=== PATIENT | male | born 1990 | race Caucasian/White ===

== ENCOUNTER 2019-10-14 03:29 | Emergency (ER) | payer OTHER ==
[~2019-10-14] VITALS: Ht 167.6 cm; Wt 67.6 kg
[2019-10-14] MEDS ORDERED: ONDANSETRON ODT 4 MG TAB.RAPDIS PO ONE (03:45)
[2019-10-14] MEDS ORDERED: DEXAMETHASONE 4 MG TABLET PO ONE (03:45)
--- NOTE | 2019-10-14 03:45 | PHYS DOC ---
Past History Past Medical History: A-Fib, CAD Additional Past Surgical Histo: Cardioversion Smoking: Non-smoker Alcohol Use: None Drug Use: None Adult General Chief Complaint Chief Complaint: Cough, Vomiting HPI HPI 29-year-old male presents with report of cough with generalized malaise and subjective fever/chills. Patient reports started 24 hours ago. Reports awoke this morning with nausea and vomiting. Denies any diarrhea. 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 Denies trauma. Review of Systems Review of Systems Constitutional: Reports subjective fever and chills Eyes: Denies redness or eye pain HENT: Reports rhinorrhea; denies sore throat Respiratory: Reports cough; denies shortness of breath Cardiovascular: Denies chest pain or palpitations GI: Denies abdominal pain; reports nausea and vomiting : Denies dysuria or hematuria Musculoskeletal: Denies back pain or joint pain Integument: Denies rash or skin lesions Neurologic: Denies headache, focal weakness or sensory changes Complete systems were reviewed and found to be within normal limits, except as documented in this note. Physical Exam Physical Exam Constitutional: Well developed, well nourished, non-toxic appearance HENT: Normocephalic, atraumatic, oropharynx tacky Eyes: Conjunctiva normal, no discharge Neck: Normal range of motion, no tenderness, supple, no meningeal signs Cardiovascular: Heart rate normal, regular rhythm Lungs & Thorax: Bilateral breath sounds clear to auscultation, no wheezing Abdomen: Soft, no tenderness, no guarding/rebound tenderness/distention Skin: Warm, dry, no erythema, no rash Back: No tenderness, no CVA tenderness Extremities: No tenderness, ROM intact, no edema Neurologic: Alert and oriented X 3, no focal deficits noted Psychologic: Affect normal, judgement normal EKG EKG [] Radiology/Procedures Radiology/Procedures PROCEDURE: CHEST PA & LATERAL EXAM: PA and Lateral Views of the Chest DATE: 10/14/2019 3:41 AM INDICATION: Cough COMPARISON: No Prior FINDINGS: The heart is not enlarged. Mediastinal and hilar contours are normal. No focal parenchymal airspace opacity. No pleural effusion or pneumothorax. IMPRESSION: 1. No radiographic evidence for acute cardiopulmonary process. Electronically signed by: Abel Latif MD (10/14/2019 4:08 AM) [id number] Course & Med Decision Making Course & Med Decision Making Pertinent Labs and Imaging studies reviewed. (See chart for details) Patient presents with history of present illness and physical exam consistent for viral syndrome. Symptomatic treatment provided. IV fluid hydration given. Labs obtained and posted to chart. Influenza negative. Chest x-ray without acute process. Patient stable for discharge with outpatient follow-up with PCP. Discussed findings and plan with patient, who acknowledges understanding and agreement. Dragon Disclaimer Dragon Disclaimer This electronic medical record was generated, in whole or in part, using a voice recognition dictation system. Departure Departure: Impression: Primary Impression: Viral syndrome Disposition: HOME, SELF-CARE Condition: STABLE Referrals: PCP,NO (PCP) Patient Instructions: Nausea and Vomiting, [id number], Viral Syndrome Scripts Benzonatate (TESSALON PERLE) 100 Mg Capsule 1 CAP PO TID PRN for COUGH, #21 CAP Prov: ROBYN IQBAL DO 10/14/19 Prednisone (PREDNISONE) 20 Mg Tablet 2 TAB PO DAILY for Viral syndrome, #8 TAB Start this prescription tomorrow, Tuesday10/15/2019 Prov: ROBYN IQBAL DO 10/14/19 Famotidine (PEPCID) 20 Mg Tablet 1 TAB PO BID for Gastritis, #20 TAB Prov: ROBYN IQBAL DO 10/14/19 Ondansetron (ONDANSETRON ODT) 4 Mg Tab.rapdis 1 TAB PO PRN Q6-8HRS PRN for NAUSEA, #16 TAB Prov: ROBYN IQBAL DO 10/14/19 ROBYN IQBAL DO Oct 14, 2019 03:45
[2019-10-14] MEDS ORDERED: PRED20TA PO (03:52)
[2019-10-14] MEDS ORDERED: BENZ100C PO (03:52)
[2019-10-14] MEDS ORDERED: ONDA4TAB12 PO (03:52)
[2019-10-14] MEDS ORDERED: FAMO-63 PO (03:52)
[2019-10-14] MEDS ORDERED: DEXAMETHASONE SOD PHOS 4 MG/ML VIAL IVP ONE (04:00)
[2019-10-14] MEDS ORDERED: FAMOTIDINE 20 MG/2 ML VIAL IVP ONE (04:00)
[2019-10-14] MEDS ORDERED: IV NORMAL SALINE 1,000ML 1,000 ML IV ONE (04:00)
[2019-10-14] MEDS ORDERED: ONDANSETRON PF 4 MG/2 ML VIAL. IVP ONE ×2 (04:00→05:00)
--- NOTE | 2019-10-14 04:11 | RAD ---
EXAM: PA and Lateral Views of the Chest DATE: 10/14/2019 3:41 AM INDICATION: Cough COMPARISON: No Prior FINDINGS: The heart is not enlarged. Mediastinal and hilar contours are normal. No focal parenchymal airspace opacity. No pleural effusion or pneumothorax. IMPRESSION: 1. No radiographic evidence for acute cardiopulmonary process. Electronically signed by: Abel Latif MD (10/14/2019 4:08 AM) [facility]
[2019-10-14 04:28] LABS: BASO % 1 % (0-3); EOS # 0.1 x10^3/uL (0.0-0.7); EOS % 1 % (0-3); HEMATOCRIT 46.1 % (39.0-53.0); HEMOGLOBIN 15.8 g/dL (13.0-17.5); LYMPH # 0.4 x10^3/uL (1.0-4.8); LYMPH % 5 % (24-48); MEAN CORPUSCULAR HEMOGLOBIN 31 pg (25-35); MEAN CORPUSCULAR HGB CONC 34 g/dL (31-37); MEAN CORPUSCULAR VOLUME 89 fL (79-100); MONO % 13 % (0-9); NEUT # 6.3 x10^3uL (1.8-7.7); NEUT % 80 % (31-73); PLATELET COUNT 236 x10^3/uL (140-400); RED BLOOD COUNT 5.18 x10^6/uL (4.30-5.70); RED CELL DISTRIBUTION WIDTH 12.8 % (11.5-14.5); WHITE BLOOD COUNT 7.9 x10^3/uL (4.0-11.0)
[2019-10-14 04:31] LABS: CALCIUM 8.9 mg/dL (8.5-10.1); CREATININE 0.9 mg/dL (0.7-1.3); GFR 100.5; POTASSIUM 3.5 mmol/L (3.5-5.1)
[2019-10-14 04:37] LABS: ALBUMIN 4.1 g/dL (3.4-5.0); ALBUMIN/GLOBULIN RATIO 1.4 (1.0-1.7); TOTAL BILIRUBIN 0.8 mg/dL (0.2-1.0); TOTAL PROTEIN 7.1 g/dL (6.4-8.2)
[2019-10-14 04:39] LABS: INFLUENZA A PATIENT NEGATIVE (NEGATIVE); INFLUENZA B PATIENT NEGATIVE (NEGATIVE)
[2019-10-14 04:40] VITALS: BP 126/55
== END 2019-10-14 05:00 | disposition home or self-care (01) ==
LOC: ER 03:29
DX: B34.9 Viral infection, unspecified (principal); R11.2 Nausea with vomiting, unspecified; R50.9 Fever, unspecified; R05 Cough; R53.81 Other malaise; I48.91 Unspecified atrial fibrillation; I25.10 Atherosclerotic heart disease of native coronary artery without angina pectoris; Z98.890 Other specified postprocedural states
CPT/HCPCS: 36415; 71046; 80053; 83690; 83735; 85025; 87804; 96361; 96374; 96375; 96376; 99285; J1100; J2405; J3490; J7030

== ENCOUNTER 2020-03-08 23:45 | Emergency (ER) | payer OTHER ==
[~2020-03-08] VITALS: Ht 167.6 cm; Wt 66.0 kg
[~2020-03-08 23:45] MED LIST: BENZ100C PO; FAMO-63 PO; ONDA4TAB12 PO; PRED20TA PO
--- NOTE | 2020-03-09 00:05 | PHYS DOC ---
Past History Past Medical History: A-Fib, Asthma, CAD, ND Past Surgical History: No Surgical History Additional Past Surgical Histo: Cardioversion Smoking: Non-smoker Alcohol Use: None Drug Use: None General Adult EDM: Chief Complaint: ABDOMINAL PAIN HPI: HPI: Patient is a 30-year-old male who presents with complaint of lower abdominal pain that started earlier this afternoon at about 1 or 130. Patient states that pain got quite a bit worse at around 730 to 8:00 when he tried to lay down to go to sleep. He states the pain was worsened with lying down flat. He does indicate that when he is walking that he hunches over slightly. Patient rates pain at about a 7 or an 8 out of 10. He denies any nausea or vomiting but does indicate that he has had some diarrhea over the past couple of days. He also states that he was feeling feverish at work but he states that that had cleared up. [] Review of Systems: Review of Systems: Constitutional: Denies fever or chills Respiratory: Denies cough or shortness of breath Cardiovascular: Denies chest pain or edema GI: Complains of lower abdominal pain and diarrhea. Denies nausea or vomiting : Denies dysuria Musculoskeletal: Denies back pain or joint pain Integument: Denies rash Neurologic: Denies headache, focal weakness or sensory changes Heart Score: Risk Factors: Risk Factors: DM, Current or recent (<one month) smoker, HTN, HLP, family history of CAD, obesity. Risk Scores: Score 0 - 3: 2.5% MACE over next 6 weeks - Discharge Home Score 4 - 6: 20.3% MACE over next 6 weeks - Admit for Clinical Observation Score 7 - 10: 72.7% MACE over next 6 weeks - Early Invasive Strategies Allergies: Allergies: Allergies Coded Allergies Type Severity Reaction Last Updated Verified cefuroxime Allergy Intermediate Hives 10/14/19 Yes Physical Exam: PE: Constitutional: Well developed, well nourished, no acute distress, non-toxic appearance. [] HENT: Normocephalic, atraumatic, bilateral external ears normal, oropharynx moist, no oral exudates, nose normal. [] Eyes: PERRLA, EOMI, conjunctiva normal, no discharge. [] Neck: Normal range of motion, no tenderness, supple. [] Cardiovascular: Regular rate and rhythm [] Lungs & Thorax: Bilateral breath sounds clear to auscultation [] Abdomen: Bowel sounds normal, soft, with mild lower abdominal tenderness. [] Skin: Warm, dry, no erythema, no rash. [] Extremities: No tenderness, no cyanosis, no clubbing, ROM intact, no edema. [] Neurologic: Alert and oriented X 3, no focal deficits noted. [] Current Patient Data: Vital Signs: Vital Signs Date Time Temp Pulse Resp B/P (MAP) Pulse Ox O2 Delivery O2 Flow Rate FiO2 03/08/20 23:56 97.8 79 18 125/99 (108) 99 Room Air EKG: EKG: [] Radiology/Procedures: Radiology/Procedures: [] Impressions: PROCEDURE: CT ABD PELV W/ IV CONTRST ONLY Examination: CT of the abdomen pelvis with IV contrast HISTORY: History of right lower quadrant abdominal pain TECHNIQUE: Axial CT images of the abdomen pelvis were performed with IV contrast. Coronal and sagittal reformats are performed Exposure: One or more of the following individualized dose reduction techniques were utilized for this examination: 1. Automated exposure control 2. Adjustment of the mA and/or kV according to patient size 3. Use of iterative reconstruction technique FINDINGS: The bibasilar lungs are clear. No evidence of free air identified in the abdomen. The liver, spleen, adrenals grossly appears unremarkable. Gallbladder is mildly distended. The stomach is mildly distended. The visualized pancreas grossly appears unremarkable. The small bowel is nondilated. The appendix appears unremarkable. Feces and gas noted in the colon. There is questionable mild thickened appearance of the wall of the distal ileum with the mild surrounding fat stranding. The bilateral kidneys enhance symmetrically. Urinary bladder is mildly distended. No evidence of lytic bony destructive lesion. IMPRESSION: 1. Mild thickened appearance of the wall of the distal ileum with minimal questionable surrounding fat stranding could be mild enteritis. Electronically signed by: Michael Watts MD (03/09/2020 1:53 AM) [id number] Course & Med Decision Making: Course & Med Decision Making Pertinent Labs and Imaging studies reviewed. (See chart for details) [] Dragon Disclaimer: Dragon Disclaimer: This electronic medical record was generated, in whole or in part, using a voice recognition dictation system. Departure Departure: Impression: Primary Impression: Enteritis Disposition: 01 HOME/RESIDENCE PRIOR TO ADM Condition: STABLE Referrals: PCP,NO (PCP) Patient Instructions: Viral Gastroenteritis Scripts Tramadol Hcl (TRAMADOL HCL) 50 Mg Tablet 50 MG PO PRN Q6HRS PRN for PAIN, #12 TAB Prov: STEPHANIE NEGRON Jr. DO 03/09/20 Ondansetron (ONDANSETRON ODT) 4 Mg Tab.rapdis 1 TAB PO PRN Q6-8HRS PRN for NAUSEA, #12 TAB Prov: STEPHANIE NEGRON Jr. DO 03/09/20 Diphenoxylate Hcl/Atropine (LOMOTIL TABLET) 1 Each Tablet 1 TAB PO TID PRN for DIARRHEA, #15 TAB Prov: STEPHANIE NEGRON Jr. DO 03/09/20 Justification of Admission: Justification of Admission: Justification of Admission Dx: Comment: (Not applicable) STEPHANIE NEGRON Jr. DO Mar 09, 2020 00:05
[2020-03-09 00:29] LABS: BASO # 0.1 x10^3/uL (0.0-0.2); BASO % 1 % (0-3); EOS # 0.6 x10^3/uL (0.0-0.7); EOS % 8 % (0-3); HEMATOCRIT 43.1 % (39.0-53.0); HEMOGLOBIN 14.9 g/dL (13.0-17.5); LYMPH # 1.4 x10^3/uL (1.0-4.8); LYMPH % 20 % (24-48); MEAN CORPUSCULAR HEMOGLOBIN 31 pg (25-35); MEAN CORPUSCULAR HGB CONC 35 g/dL (31-37); MEAN CORPUSCULAR VOLUME 90 fL (79-100); MONO # 0.9 x10^3/uL (0.0-1.1); MONO % 13 % (0-9); NEUT # 4.3 x10^3uL (1.8-7.7); NEUT % 59 % (31-73); PLATELET COUNT 252 x10^3/uL (140-400); RED BLOOD COUNT 4.79 x10^6/uL (4.30-5.70); RED CELL DISTRIBUTION WIDTH 12.6 % (11.5-14.5); WHITE BLOOD COUNT 7.2 x10^3/uL (4.0-11.0)
[2020-03-09] MEDS ORDERED: ONDANSETRON PF 4 MG/2 ML VIAL. IVP ONE (00:30)
[2020-03-09] MEDS ORDERED: IV NORMAL SALINE 1,000ML 1,000 ML IV SCH (00:30)
[2020-03-09] MEDS ORDERED: KETOROLAC 30 MG/ML VIAL. IVP ONE (00:30)
[2020-03-09 00:38] LABS: CALCIUM 8.6 mg/dL (8.5-10.1); CREATININE 0.9 mg/dL (0.7-1.3); GFR 99.8; POTASSIUM 3.5 mmol/L (3.5-5.1)
[2020-03-09 00:44] LABS: ALBUMIN 3.6 g/dL (3.4-5.0); ALBUMIN/GLOBULIN RATIO 1.1 (1.0-1.7); TOTAL BILIRUBIN 0.5 mg/dL (0.2-1.0); TOTAL PROTEIN 6.8 g/dL (6.4-8.2)
[2020-03-09 00:47] LABS: BACTERIA,URINE FEW /HPF (0-FEW); BILIRUBIN,URINE NEG (NEG); CLARITY,URINE CLEAR; COLOR,URINE YELLOW; GLUCOSE,URINE NEG (NEG); NITRITE,URINE NEG (NEG); RBC,URINE OCC /HPF (0-2); UROBILINOGEN,URINE 0.2 mg/dL (0.2 mg/dL); WBC,URINE OCC /HPF (0-4)
[2020-03-09] MEDS ORDERED: CONTRAST GIVEN MC PRN (01:30)
--- NOTE | 2020-03-09 01:56 | RAD ---
Examination: CT of the abdomen pelvis with IV contrast HISTORY: History of right lower quadrant abdominal pain TECHNIQUE: Axial CT images of the abdomen pelvis were performed with IV contrast. Coronal and sagittal reformats are performed Exposure: One or more of the following individualized dose reduction techniques were utilized for this examination: 1. Automated exposure control 2. Adjustment of the mA and/or kV according to patient size 3. Use of iterative reconstruction technique FINDINGS: The bibasilar lungs are clear. No evidence of free air identified in the abdomen. The liver, spleen, adrenals grossly appears unremarkable. Gallbladder is mildly distended. The stomach is mildly distended. The visualized pancreas grossly appears unremarkable. The small bowel is nondilated. The appendix appears unremarkable. Feces and gas noted in the colon. There is questionable mild thickened appearance of the wall of the distal ileum with the mild surrounding fat stranding. The bilateral kidneys enhance symmetrically. Urinary bladder is mildly distended. No evidence of lytic bony destructive lesion. IMPRESSION: 1. Mild thickened appearance of the wall of the distal ileum with minimal questionable surrounding fat stranding could be mild enteritis. Electronically signed by: Michael Watts MD (03/09/2020 1:53 AM) [id number]
[2020-03-09] MEDS ORDERED: IOHEXOL 300 MG/ML 75 ML VIAL. IV ONE (02:00)
[2020-03-09] MEDS ORDERED: DIPH1TAB PO (02:04)
[2020-03-09] MEDS ORDERED: TRAM50TA PO (02:04)
[2020-03-09] MEDS ORDERED: ONDA4TAB12 PO (02:04)
[2020-03-09 02:10] VITALS: BP 118/73
== END 2020-03-09 02:10 | disposition home or self-care (01) ==
LOC: ER 23:45
DX: K52.9 Noninfective gastroenteritis and colitis, unspecified (principal); I48.91 Unspecified atrial fibrillation; J45.909 Unspecified asthma, uncomplicated; I25.10 Atherosclerotic heart disease of native coronary artery without angina pectoris; I25.2 Old myocardial infarction; Z88.1 Allergy status to other antibiotic agents
CPT/HCPCS: 36415; 74177; 80053; 81001; 83690; 85025; 96361; 96374; 96375; 99285; J1885; J2405; J7030; Q9967

== ENCOUNTER 2020-11-12 18:48 | Emergency (ER) | payer OTHER ==
[~2020-11-12] VITALS: Ht 170.2 cm; Wt 67.7 kg
[~2020-11-12 18:48] MED LIST changes: +DIPH1TAB PO; +TRAM50TA PO
[2020-11-12] MEDS ORDERED: ASPIRIN CHEWABLE 81 MG TABLET. PO ONE (19:15)
--- NOTE | 2020-11-12 19:41 | RAD ---
INDICATION: Reason: chest pain / Spl. Instructions: / History: COMPARISON: October 14, 2019 FINDINGS: Single view of chest obtained. Cardiac silhouette is similar to prior. No definite new region of consolidation or edema. No gross os seous destructive lesion. IMPRESSION: * No focal airspace consolidation or edema. Electronically signed by: Ramu Velasquez MD (11/12/2020 7:38 PM) [id number]
[2020-11-12 19:45] LABS: BASO # 0.1 x10^3/uL (0.0-0.2); BASO % 1 % (0-3); EOS # 0.2 x10^3/uL (0.0-0.7); EOS % 2 % (0-3); HEMATOCRIT 44.5 % (39.0-53.0); HEMOGLOBIN 15.1 g/dL (13.0-17.5); LYMPH # 1.7 x10^3/uL (1.0-4.8); LYMPH % 18 % (24-48); MEAN CORPUSCULAR HEMOGLOBIN 31 pg (25-35); MEAN CORPUSCULAR HGB CONC 34 g/dL (31-37); MEAN CORPUSCULAR VOLUME 90 fL (79-100); MONO # 0.8 x10^3/uL (0.0-1.1); MONO % 9 % (0-9); NEUT # 6.6 x10^3uL (1.8-7.7); NEUT % 70 % (31-73); PLATELET COUNT 286 x10^3/uL (140-400); RED BLOOD COUNT 4.94 x10^6/uL (4.30-5.70); RED CELL DISTRIBUTION WIDTH 12.6 % (11.5-14.5); WHITE BLOOD COUNT 9.5 x10^3/uL (4.0-11.0)
[2020-11-12] MEDS ORDERED: NITROGLYCERIN SUBLINGUAL 0.4 MG BOTTLE OF 25. SL PRN (19:45)
[2020-11-12 19:56] LABS: CALCIUM 8.8 mg/dL (8.5-10.1); CREATININE 0.8 mg/dL (0.7-1.3); GFR 114.3; POTASSIUM 3.6 mmol/L (3.5-5.1)
[2020-11-12 20:01] LABS: ALBUMIN 3.8 g/dL (3.4-5.0); ALBUMIN/GLOBULIN RATIO 1.2 (1.0-1.7); TOTAL BILIRUBIN 0.5 mg/dL (0.2-1.0)
--- NOTE | 2020-11-12 21:56 | EKG ---
[address] [address] Test Date: 2020-11-12 Test Time: 18:55:53 Pat Name: GWEN ADORNO Department: Room: Gender: M [employer]ment [employer]: : 1990 Requested By: NATHAN HOFFMANN Order Number: [id number] Reading MD: Measurements Intervals [place] Rate: 84 P: 53 OK: 152 QRS: 56 QRSD: 82 T: 29 QT: 364 QTc: 433 Interpretive Statements SINUS RHYTHM OTHERWISE NORMAL ECG RI6.02 No previous ECG available for comparison
[2020-11-12 21:57] VITALS: BP 115/70
--- NOTE | 2020-11-12 22:06 | PHYS DOC ---
Past History Past Medical History: A-Fib, Asthma, CAD, ME (NATHAN HOFFMANN APRN) Past Surgical History: No Surgical History Additional Past Surgical Histo: Cardioversion (NATHAN HOFFMANN APRN) Smoking: Non-smoker Alcohol Use: None Drug Use: None (NATHAN HOFFMANN APRN) General Adult EDM: Chief Complaint: CHEST PAIN HPI: HPI: Patient is a 30-year-old male who presents with chest pain. Patient states that the chest pain is on the left side of his chest, squeezing pain. Patient reports that he had an ME 2 years ago and was placed on blood thinners. Patient denies being on blood thinners at this time. Patient denies shortness of breath, nausea/vomiting, dizziness. Denies other medical history. (NATHAN HOFFMANN APRN) Review of Systems: Review of Systems: Constitutional: Denies fever or chills Eyes: Denies change in visual acuity HENT: Denies nasal congestion or sore throat Respiratory: Denies cough or shortness of breath Cardiovascular: Reports chest pain denies edema GI: Denies abdominal pain, nausea, vomiting, bloody stools or diarrhea : Denies dysuria Musculoskeletal: Denies back pain or joint pain Integument: Denies rash Neurologic: Denies headache, focal weakness or sensory changes Endocrine: Denies polyuria or polydipsia Lymphatic: Denies swollen glands Psychiatric: Denies depression or anxiety (NATHAN HOFFMANN APRN) Current Medications: Current Meds: Current Medications Medications (Trade) Dose Ordered Sig/Salvador Start Time Stop Time Status Last Admin Dose Admin Aspirin (Aspirin Chewable) 324 mg 1X ONCE 11/12/20 19:15 11/12/20 19:19 DC 11/12/20 19:25 324 MG Nitroglycerin (Nitrostat) 0.4 mg PRN Q5MIN PRN 11/12/20 19:45 (NATHAN HOFFMANN APRN) Allergies: Allergies: Allergies Coded Allergies Type Severity Reaction Last Updated Verified cefuroxime Allergy Intermediate Hives 11/12/20 Yes (NATHAN HOFFMANN APRN) Physical Exam: PE: Constitutional: Well developed, well nourished, no acute distress, non-toxic appearance. [] HENT: Normocephalic, atraumatic, bilateral external ears normal, oropharynx moist, no oral exudates, nose normal. [] Eyes: PERRLA, EOMI, conjunctiva normal, no discharge. [] Neck: Normal range of motion, no tenderness, supple, no stridor. [] Cardiovascular:Heart rate regular rhythm, no murmur [] Lungs & Thorax: Bilateral breath sounds clear to auscultation [] Abdomen: Bowel sounds normal, soft, no tenderness, no masses, no pulsatile masses. [] Skin: Warm, dry, no erythema, no rash. [] Back: No tenderness, no CVA tenderness. [] Extremities: No tenderness, no cyanosis, no clubbing, ROM intact, no edema. [] Neurologic: Alert and oriented X 3, normal motor function, normal sensory function, no focal deficits noted. [] Psychologic: Affect normal, judgement normal, mood normal. [] (NATHAN HOFFMANN APRN) Current Patient Data: Labs: Laboratory Tests Test 11/12/20 19:05 11/12/20 19:14 Troponin I Quantitative < 0.017 ng/mL (0-0.055) White Blood Count 9.5 x10^3/uL (4.0-11.0) Red Blood Count 4.94 x10^6/uL (4.30-5.70) Hemoglobin 15.1 g/dL (13.0-17.5) Hematocrit 44.5 % (39.0-53.0) Mean Corpuscular Volume 90 fL (79-100) Mean Corpuscular Hemoglobin 31 pg (25-35) Mean Corpuscular Hemoglobin Concent 34 g/dL (31-37) Red Cell Distribution Width 12.6 % (11.5-14.5) Platelet Count 286 x10^3/uL (140-400) Neutrophils (%) (Auto) 70 % (31-73) Lymphocytes (%) (Auto) 18 % (24-48) L Monocytes (%) (Auto) 9 % (0-9) Eosinophils (%) (Auto) 2 % (0-3) Basophils (%) (Auto) 1 % (0-3) Neutrophils # (Auto) 6.6 x10^3uL (1.8-7.7) Lymphocytes # (Auto) 1.7 x10^3/uL (1.0-4.8) Monocytes # (Auto) 0.8 x10^3/uL (0.0-1.1) Eosinophils # (Auto) 0.2 x10^3/uL (0.0-0.7) Basophils # (Auto) 0.1 x10^3/uL (0.0-0.2) Sodium Level 139 mmol/L (136-145) Potassium Level 3.6 mmol/L (3.5-5.1) Chloride Level 104 mmol/L (98-107) Carbon Dioxide Level 27 mmol/L (21-32) Anion Gap 8 (6-14) Blood Urea Nitrogen 13 mg/dL (8-26) Creatinine 0.8 mg/dL (0.7-1.3) Estimated GFR (Cockcroft-Gault) 114.3 BUN/Creatinine Ratio 16 (6-20) Glucose Level 88 mg/dL (70-99) Calcium Level 8.8 mg/dL (8.5-10.1) Total Bilirubin 0.5 mg/dL (0.2-1.0) Aspartate Amino Transferase (AST) 25 U/L (15-37) Alanine Aminotransferase (ALT) 42 U/L (16-63) Alkaline Phosphatase 70 U/L (46-116) Total Protein 7.0 g/dL (6.4-8.2) Albumin 3.8 g/dL (3.4-5.0) Albumin/Globulin Ratio 1.2 (1.0-1.7) Vital Signs: Vital Signs Date Time Temp Pulse Resp B/P (MAP) Pulse Ox O2 Delivery O2 Flow Rate FiO2 11/12/20 18:52 97.9 88 18 146/74 (98) 98 Room Air (NATHAN HOFFMANN APRN) EKG: EKG: [] Normal sinus rhythm heart rate 84 bpm (NATHAN HOFFMANN APRN) Radiology/Procedures: Radiology/Procedures: []INDICATION: Reason: chest pain / Spl. Instructions: / History: COMPARISON: October 14, 2019 FINDINGS: Single view of chest obtained. Cardiac silhouette is similar to prior. No definite new region of consolidation or edema. No gross osseous destructive lesion. IMPRESSION: * No focal airspace consolidation or edema. Electronically signed by: Ramu Velasquez MD (11/12/2020 7:38 PM) [id number] (NATHAN HOFFMANN APRN) Heart Score: HEART Score for Chest Pain: HEART Score for Chest Pain Response (Comments) Value History Moderately Suspicious 1 ECG Normal 0 Age < 45 0 Risk Factors No Risk Factors 0 Troponin < Normal Limit 0 Total 1 Risk Factors: Risk Factors: DM, Current or recent (<one month) smoker, HTN, HLP, family history of CAD, obesity. Risk Scores: Score 0 - 3: 2.5% MACE over next 6 weeks - Discharge Home Score 4 - 6: 20.3% MACE over next 6 weeks - Admit for Clinical Observation Score 7 - 10: 72.7% MACE over next 6 weeks - Early Invasive Strategies (NATHAN HOFFMANN APRN) Course & Med Decision Making: Course & Med Decision Making Pertinent Labs and Imaging studies reviewed. (See chart for details) []Patient is a 30-year-old male who presents with chest pain. Patient states that the chest pain is on the left side of his chest, squeezing pain. Patient reports that he had an ME 2 years ago and was placed on blood thinners. Patient denies being on blood thinners at this time. Patient denies shortness of breath, nausea/vomiting, dizziness. Denies other medical history. EKG normal sinus rhythm. 84 bpm. Chest x-ray negative for acute abnormality. Troponin is negative. Heart score of 1. She is discharged to home with follow- up with primary care in the morning. Patient needs close management due to history of ME 2 years ago. Patient is instructed to return to the emergency room with worsening pains or symptoms. Patient is hemodynamically stable. (NATHAN HOFFMANN APRN) Course & Med Decision Making Did not see or evaluate patient. Agree with SECOND BALLER's work-up and disposition per note. (BEATA VERAS MD) Dragon Disclaimer: Dragon Disclaimer: This electronic medical record was generated, in whole or in part, using a voice recognition dictation system. (NATHAN HOFFMANN APRN) Departure Departure: Impression: Primary Impression: Chest pain Qualified Codes: R07.9 - Chest pain, unspecified Disposition: 01 DC HOME SELF CARE/HOMELESS Condition: GOOD Referrals: PCP,NO (PCP) Patient Instructions: Chest Pain (Nonspecific), [id number] Additional Instructions: You are seen in the emergency room for chest pain. Your EKG was negative for any acute abnormalities. Your troponin was negative. Please follow-up with your PCP tomorrow for additional care and management. Return to the emergency room with worsening chest pain, shortness of breath, dizziness or further concerns. EMERGENCY DEPARTMENT GENERAL DISCHARGE INSTRUCTIONS Thank you for coming to [facility] (ED) today and trusting us with you care. We trust that you had a positivie experience in our Emergency Department. If you wish to speak to the department management, you may call the director at [phone]. YOUR FOLLOW UP INSTRUCTIONS ARE FOLLOWS: 1. Do you have a private Doctor? If you do not have a private doctor, please ask for a resource list of physicians or clinics that may be able to assist you with follow up care. 2. The Emergency Physician has interpreted your x-rays. The X-Ray specialist will also review them. If there is a change in the findings, you will be notified in 48 hours when at all possible. 3. A lab test or culture has been done, your results will be reviewed and you will be notified if you need a change in treatment. ADDITIONAL INSTRUCTIONS AND INFORMATION: 1. Your care today has been supervised by a physician who is specially trained in emergency care. Many problems require more than one evaluation for a complete diagnosis and treatment. We recommend that you schedule your follow up appointment as recommended to ensure complete treatment of you illness or injury. If you are unable to obtain follow up care and continue to have a problem, or if your condition worsens, we recommend that you return to the ED. 2. We are not able to safely determine your condition over the phone nor are we able to give sound medical advice over the phone. For these safety reasons, if you call for medical advice we will ask you to come to the ED for further evaluation. 3. If you have any questions regarding these discharge instructions please call the ED at [phone]. SAFETY INFORMATION: In the interest of safety, wellness, and injury prevention; we encourage you to wear your sealbelt, if you smoke; quite smoking, and we encourage family to use a protective helmet for bicycling and other sporting events that present an increased risk for head injury. IF YOUR SYMPTOMS WORSEN OR NEW SYMPTOMS DEVELOP, OR YOU HAVE CONCERNS ABOUT YOUR CONDITION; OR IF YOUR CONDITION WORSENS WHILE YOU ARE WAITING FOR YOUR FOLLOW UP APPOINTMENT; EITHER CONTACT YOUR PRIMARY CARE DOCTOR, THE PHYSICIAN WHOSE NAME AND NUMBER YOU WERE GIVEN, OR RETURN TO THE ED IMMEDIATELY. NATHAN HOFFMANN APRN Nov 12, 2020 22:06 BEATA VERAS MD Nov 14, 2020 01:57
== END 2020-11-12 22:24 | disposition home or self-care (01) ==
LOC: ER 18:48
DX: R07.89 Other chest pain (principal); I48.91 Unspecified atrial fibrillation; J45.909 Unspecified asthma, uncomplicated; I25.10 Atherosclerotic heart disease of native coronary artery without angina pectoris; I25.2 Old myocardial infarction; Z88.8 Allergy status to other drugs, medicaments and biological substances
CPT/HCPCS: 36415; 71045; 80053; 84484; 85025; 93005; 99285

== ENCOUNTER 2021-10-15 20:39 | Emergency (ER) | payer OTHER ==
[~2021-10-15] VITALS: Ht 170.2 cm; Wt 67.7 kg
[2021-10-15 20:50] VITALS: BP 115/70
--- NOTE | 2021-10-15 20:55 | PHYS DOC ---
Past History Past Medical History: A-Fib, Asthma, CAD, [place] Past Surgical History: No Surgical History Additional Past Surgical Histo: Cardioversion Smoking: Non-smoker Alcohol Use: None Drug Use: None Adult General Chief Complaint Chief Complaint: ANKLE PROBLEM HPI HPI Patient is a 31-year-old male who presents with ankle pain that happened just before coming to the emergency department while he was playing basketball. States he twisted it after making a shot. States that it hurts, 7 out of 10, dull and achy in nature but can walk. Denies any other injuries. Did not take any medications or use any ice. Review of Systems Review of Systems Review of systems otherwise unremarkable except noted in HPI Allergies Allergies Allergies Coded Allergies Type Severity Reaction Last Updated Verified cefuroxime Allergy Intermediate Hives 11/12/20 Yes Physical Exam Physical Exam Constitutional: Well developed, well nourished, no acute distress, non-toxic appearance. [] HENT: Normocephalic, atraumatic, bilateral external ears normal, oropharynx moist, no oral exudates, nose normal. [] Back: No tenderness, Extremities: Neurovascular exam intact, mild swelling over right lateral malleolus with no obvious bruising or deformities Neurologic: Alert and oriented X 3, normal motor function, normal sensory function, able to sit, stand and walk, no focal deficits noted. [] Psychologic: Affect normal, judgement normal, mood normal. [] EKG EKG [] Radiology/Procedures Radiology/Procedures [] Heart Score C/O Chest Pain: No Risk Factors: Risk Factors: DM, Current or recent (<one month) smoker, HTN, HLP, family history of CAD, obesity. Risk Scores: Risk Factors: DM, Current or recent (<one month) smoker, HTN, HLP, family history of CAD, obesity. Course & Med Decision Making Course & Med Decision Making Patient is a 31-year-old male who presents with ankle pain Vital signs not concerning. Physical exam noted above. Given pain medicine and ice pack. Omar wrap. Imaging with no acute osseous abnormalities. Discussed symptom management at home. Advised to follow-up with primary care as needed. Gave return precautions to the ED. Patient grateful, verbalized understanding and agreed with plan of discharge Dragon Disclaimer Dragon Disclaimer This electronic medical record was generated, in whole or in part, using a voice recognition dictation system. Departure Departure: Impression: Primary Impression: Ankle pain Disposition: HOME / SELF CARE / HOMELESS Condition: GOOD Referrals: PCP,NO (PCP) TORIBIO SLOAN MD Patient Instructions: Ankle Pain, RICE - Routine Care for Injuries Additional Instructions: Thank you for coming into the emergency department tonight and allowing us to take care of you. Please read the attached information carefully to go over things we discussed. You can use Tylenol, ibuprofen and ice as needed for pain control. Please follow-up with your primary care physician in the morning to update on your ED visit. Please come back to the ED with new or concerning symptoms as we discussed. BEATA VERAS MD Oct 15, 2021 20:55
[2021-10-15] MEDS ORDERED: ACETAMINOPHEN 500 MG TABLET PO ONE (21:30)
[2021-10-15] MEDS ORDERED: IBUPROFEN 600 MG TABLET. PO ONE (21:30)
--- NOTE | 2021-10-15 21:43 | RAD ---
XR EXAM OF ANKLE_RIGHT 3VIEWS History: Reason: Injury with pain, swelling at Lat Mal / Spl. Instructions: / History: Technique: 3 views right ankle Comparison: None. Findings: Lateral ankle soft tissue swelling. Normal limit. No dislocation. No acute fracture. Well-corticated ossification inferior to the medial malleolus, likely related to prior trauma. Impression: 1. No acute osseous abnormality. 2. Lateral ankle soft tissue spine. Electronically signed by: Jatinder Pickering DO (10/15/2021 9:41 PM) [facility]
== END 2021-10-15 21:45 | disposition home or self-care (01) ==
LOC: ER 20:39
DX: M25.571 Pain in right ankle and joints of right foot (principal); R22.41 Localized swelling, mass and lump, right lower limb; I48.91 Unspecified atrial fibrillation; J45.909 Unspecified asthma, uncomplicated; I25.10 Atherosclerotic heart disease of native coronary artery without angina pectoris; I25.2 Old myocardial infarction; Z88.1 Allergy status to other antibiotic agents; X50.9XXA Other and unspecified overexertion or strenuous movements or postures, initial encounter; Y93.67 Activity, basketball; Y92.89 Other specified places as the place of occurrence of the external cause; Y99.8 Other external cause status
CPT/HCPCS: 73610; 99283

== ENCOUNTER 2022-02-14 12:49 | Emergency (ER) | payer OTHER ==
[~2022-02-14] VITALS: Ht 167.6 cm; Wt 66.7 kg
[2022-02-14] MEDS ORDERED: KETOROLAC 15 MG/ML VIAL. IVP ONE (13:30)
[2022-02-14] MEDS ORDERED: IV NORMAL SALINE 1,000ML 1,000 ML IV SCH (13:30)
[2022-02-14] MEDS: MORPHINE SULFATE 4 MG/ML DISP.SYRIN. IV/SQ PRN ×2 (13:40→14:49)
--- NOTE | 2022-02-14 13:56 | PHYS DOC ---
Past History Past Medical History: A-Fib, Asthma, CAD, [place] Additional Past Medical Histor: mi no stents placed(1999) Past Surgical History: No Surgical History Additional Past Surgical Histo: Cardioversion Smoking: Non-smoker Alcohol Use: None Drug Use: None Adult General Chief Complaint Chief Complaint: MULTIPLE COMPLAINTS HPI HPI Patient is a 32 year old male who presents with complaint of neck pain. The patient states that he injured his neck 1 week ago when he was trying to pull a tire up from the ground. He felt a pull on the right side of his neck. States that initially this was improving throughout the week, however when he awoke thi s morning at 0300 he states that he started having sudden pain when he turned his neck towards the right. States that the pain radiated into his right shoulder, chest, and around towards the right side of his back. Also notes that he has been feeling numbness and tingling along the back of his right arm towards his hand. 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 Has had previous history of myocardial infarction 2 years ago which she was told was "stress-induced." Denies shortness of breath, diaphoresis, or vomiting. Review of Systems Review of Systems Constitutional: Denies fever or chills [] Eyes: Denies change in visual acuity, redness, or eye pain [] HENT: Denies nasal congestion or sore throat [] Respiratory: Denies cough or shortness of breath [] Cardiovascular: Chest pain, denies edema [] GI: Denies abdominal pain, nausea, vomiting, bloody stools or diarrhea [] : Denies dysuria or hematuria [] Musculoskeletal: Back pain, neck pain [] Integument: Denies rash or skin lesions [] Neurologic: Numbness and tingling [] All other systems were reviewed and found to be within normal limits, except as documented in this note. Current Medications Current Medications Current Medications Medications (Trade) Dose Ordered Sig/Salvador Start Time Stop Time Status Last Admin Dose Admin Ketorolac Tromethamine (Toradol 15mg Vial) 15 mg 1X ONCE 02/14/22 13:30 02/14/22 13:32 DC 02/14/22 13:40 15 MG Morphine Sulfate (Morphine 4mg Syringe) 4 mg PRN Q15MIN PRN 02/14/22 13:30 02/15/22 13:29 02/14/22 13:40 4 MG Sodium Chloride 1,000 ml @ 1,000 mls/hr Q1H 02/14/22 13:30 02/14/22 14:29 02/14/22 13:30 1,000 MLS/HR Allergies Allergies Allergies Coded Allergies Type Severity Reaction Last Updated Verified cefuroxime Allergy Intermediate Hives 02/14/22 Yes Physical Exam Physical Exam Constitutional: Alert, afebrile, appears in moderate discomfort. [] HENT: Normocephalic, atraumatic, bilateral external ears normal, oropharynx moist, no oral exudates, nose normal. [] Eyes: PERRLA, EOMI, conjunctiva normal, no discharge. [] Neck: Normal range of motion, right paraspinous muscle tenderness to palpation next tending down towards right shoulder in distribution of trapezius muscle, supple, no stridor. [] Cardiovascular:Heart rate regular rhythm, no murmur [] Lungs & Thorax: Bilateral breath sounds clear to auscultation, right anterior chest wall tenderness to palpation, symptoms reproducible with palpation [] Abdomen: Bowel sounds normal, soft, no tenderness, no masses, no pulsatile masses. [] Skin: Warm, dry, no erythema, no rash. [] Back: No tenderness, no CVA tenderness. [] Extremities: No tenderness, no cyanosis, no clubbing, ROM intact, no edema. 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 [] Current Patient Data Vital Signs Vital Signs Date Time Temp Pulse Resp B/P (MAP) Pulse Ox O2 Delivery O2 Flow Rate FiO2 02/14/22 13:14 98.4 66 18 144/77 (99) 98 Room Air Lab Results Laboratory Tests Test 02/14/22 12:56 White Blood Count 6.6 x10^3/uL Red Blood Count 4.86 x10^6/uL Hemoglobin 15.0 g/dL Hematocrit 43.9 % Mean Corpuscular Volume 90 fL Mean Corpuscular Hemoglobin 31 pg Mean Corpuscular Hemoglobin Concent 34 g/dL Red Cell Distribution Width 12.7 % Platelet Count 292 x10^3/uL Neutrophils (%) (Auto) 60 % Lymphocytes (%) (Auto) 23 % Monocytes (%) (Auto) 10 % Eosinophils (%) (Auto) 6 % Basophils (%) (Auto) 1 % Neutrophils # (Auto) 4.0 x10^3uL Lymphocytes # (Auto) 1.5 x10^3/uL Monocytes # (Auto) 0.7 x10^3/uL Eosinophils # (Auto) 0.4 x10^3/uL Basophils # (Auto) 0.1 x10^3/uL Sodium Level 140 mmol/L Potassium Level 4.0 mmol/L Chloride Level 107 mmol/L Carbon Dioxide Level 26 mmol/L Anion Gap 7 Blood Urea Nitrogen 14 mg/dL Creatinine 0.8 mg/dL Estimated GFR (Cockcroft-Gault) 112.8 BUN/Creatinine Ratio 18 Glucose Level 112 mg/dL Calcium Level 8.6 mg/dL Magnesium Level 2.1 mg/dL Total Bilirubin 0.4 mg/dL Aspartate Amino Transf (AST/SGOT) 17 U/L Alanine Aminotransferase (ALT/SGPT) 46 U/L Alkaline Phosphatase 72 U/L Troponin I High Sensitivity 5 ng/L Total Protein 6.4 g/dL Albumin 3.6 g/dL Albumin/Globulin Ratio 1.3 Current Medications Medications (Trade) Dose Ordered Sig/Salvador Route PRN Reason Start Time Stop Time Status Last Admin Dose Admin Morphine Sulfate (Morphine 4mg Syringe) 4 mg PRN Q15MIN PRN IV/SQ PAIN GREATER THAN 3/10 02/14/22 13:30 02/14/22 15:34 DC 02/14/22 14:49 Sodium Chloride 1,000 ml @ 1,000 mls/hr Q1H IV 02/14/22 13:30 02/14/22 14:29 DC 02/14/22 13:30 Ketorolac Tromethamine (Toradol 15mg Vial) 15 mg 1X ONCE IVP 02/14/22 13:30 02/14/22 13:32 DC 02/14/22 13:40 EKG EKG Interpreted by me: Heart rate 73, sinus rhythm, normal intervals, normal axis, no acute ST/T wave abnormalities present [] Radiology/Procedures Radiology/Procedures [address] [address] IMAGING REPORT Signed PATIENT: GWEN ADORNO ACCOUNT: [id number] : 1990 LOCATION: ER AGE: 32 SEX: M EXAM STATUS: REG ER ORD. PHYSICIAN: YOANA GONZALEZ MD REASON: chest pain PROCEDURE: PORTABLE CHEST 1V XR CHEST 1V History: Reason: chest pain / Spl. Instructions: / History: Comparison: November 12, 2020 Findings: No consolidation or pleural effusion. Normal heart size. No pneumothorax. Impression: 1. No acute cardiopulmonary process. Electronically signed by: Jatinder Pickering DO (02/14/2022 2:31 PM) [facility] DICTATED AND SIGNED BY: JATINDER PICKERING DO DATE: 02/14/22 1431 CC: YOANA GONZALEZ MD; PCP,NO ~ [place] [address] IMAGING REPORT Signed PATIENT: GWEN ADORNO ACCOUNT: [id number] : 1990 LOCATION: ER AGE: 32 SEX: M EXAM STATUS: REG ER ORD. PHYSICIAN: YOANA GONZALEZ MD REASON: recurrent right sided neck pain, right arm numbness PROCEDURE: CT CERVICAL SPINE WO CONTRAST CT CERVICAL SPINE WO History: Recurrent right sided neck pain, right arm numbness Comparison: None. Technique: Noncontrast CT of the cervical spine. Findings: There are 7 nonrib-bearing cervical vertebral segments. There is no evidence for acute fracture in the cervical spine. No destructive osseous lesions are seen. Mild straightening of the normal cervical lordosis. No spondylolisthesis The intervertebral disc heights are relatively maintained. There is mild left uncovertebral hypertrophy at C3-C4. Mild central disc protrusion at C3-C4 and C4-C5. Moderate disc protrusion at C6-C7 which narrow the spinal canal to approximately 7 mm. Left maxillary first molar periapical lucency with loss of the outer cortex. Peripherally calcified left thyroid nodule measuring approximately 1.4 cm diameter. Impression: 1. Recurrent right-sided neck pain, right arm numbness. Mild degenerative disc disease in the cervical spine. If there is concern for radiculopathy, recommend MRI for further evaluation. 2. Peripherally calcified left thyroid nodule measuring approximately 1.4 cm diameter. Recommend thyroid ultrasound for further evaluation. 3. Left maxillary first molar periapical lucency with loss of the alveolar cortex. Recommend dental consultation. ------- Exposure: One or more of the following individualized dose reduction techniques were utilized for this examination: 1. Automated exposure control 2. Adjustment of the mA and/or kV according to patient size 3. Use of iterative reconstruction technique. Electronically signed by: Nam Carias MD (02/14/2022 2:47 PM) [id number] DICTATED AND SIGNED BY: NAM CARIAS MD DATE: 02/14/22 143 CC: YOANA GONZALEZ MD; PCP,NO ~ [] Heart Score C/O Chest Pain: Yes HEART Score for Chest Pain: HEART Score for Chest Pain Response (Comments) Value History Slighlty/Non-Suspicious 0 ECG Normal 0 Age < 45 0 Risk Factors >3 Risk Factors or Hx CAD 2 Troponin < Normal Limit 0 Total 2 Risk Factors: Risk Factors: DM, Current or recent (<one month) smoker, HTN, HLP, family history of CAD, obesity. Risk Scores: Risk Factors: DM, Current or recent (<one month) smoker, HTN, HLP, family h istory of CAD, obesity. Course & Med Decision Making Course & Med Decision Making Pertinent Labs and Imaging studies reviewed. (See chart for details) The patient shows no significant motor deficits on examination. Chest pain symptoms are atypical for acute coronary syndrome. Given that the patient's symptoms of chest pain started greater than 6 hours from arrival in the emergency department, 1 troponin was drawn to rule out acute myocardial ischemia. Symptoms appear consistent with cervical radiculopathy with no significant motor strength loss. Patient was prescribed hydrocodone and Medrol Dosepak for outpatient treatment. Recommend close follow-up with primary doctor within the next 2 to 3 days for reevaluation and if symptoms are persisting patient may need to have an outpatient MRI performed to further evaluate. Recommend return to the emergency department for any worsening symptoms. Patient voiced understanding and in agreement with treatment plan. [] Dragon Disclaimer Dragon Disclaimer This electronic medical record was generated, in whole or in part, using a voice recognition dictation system. Departure Departure: Impression: Primary Impression: Cervical radiculopathy, acute Additional Impressions: Atypical chest pain Periodontal disease Disposition: HOME / SELF CARE / HOMELESS Condition: STABLE Referrals: PCP,NO (PCP) Patient Instructions: Cervical Radiculopathy, Chest Pain (Nonspecific) Additional Instructions: Follow-up with your primary care provider in the next 2 to 3 days for reevaluation. If symptoms persist, you may need to have an outpatient MRI of your neck to evaluate for possible nerve impingement. Your CT scan noted an irregularity at the root of your left first upper maxillary molar that will need further evaluation by a dentist. Please call and schedule an appointment at your earliest convenience. Return to the emergency department for any worsening symptoms. Scripts Hydrocodone/Acetaminophen (Hydrocodone-Acetamin 5-325 mg) 1 Each Tablet 1 EACH PO Q4-6HRS PRN for PAIN, #18 TAB Prov: YOANA GONZALEZ MD 02/14/22 Methylprednisolone (MEDROL) 4 Mg Tab.ds.pk 1 PKG PO UD, #1 PKG Prov: YOANA GONZALEZ MD 02/14/22 Problem Qualifiers YOANA GONZALEZ MD February 14, 2022 13:56
[2022-02-14 14:01] LABS: CALCIUM 8.6 mg/dL (8.5-10.1); CREATININE 0.8 mg/dL (0.7-1.3); GFR 112.8
[2022-02-14 14:02] LABS: BASO # 0.1 x10^3/uL (0.0-0.2); BASO % 1 % (0-3); EOS # 0.4 x10^3/uL (0.0-0.7); EOS % 6 % (0-3); HEMATOCRIT 43.9 % (39.0-53.0); LYMPH # 1.5 x10^3/uL (1.0-4.8); LYMPH % 23 % (24-48); MEAN CORPUSCULAR HEMOGLOBIN 31 pg (25-35); MEAN CORPUSCULAR HGB CONC 34 g/dL (31-37); MEAN CORPUSCULAR VOLUME 90 fL (79-100); MONO # 0.7 x10^3/uL (0.0-1.1); MONO % 10 % (0-9); NEUT % 60 % (31-73); PLATELET COUNT 292 x10^3/uL (140-400); RED BLOOD COUNT 4.86 x10^6/uL (4.30-5.70); RED CELL DISTRIBUTION WIDTH 12.7 % (11.5-14.5); WHITE BLOOD COUNT 6.6 x10^3/uL (4.0-11.0)
[2022-02-14 14:08] LABS: ALBUMIN 3.6 g/dL (3.4-5.0); ALBUMIN/GLOBULIN RATIO 1.3 (1.0-1.7); MAGNESIUM 2.1 mg/dL (1.8-2.4); TOTAL BILIRUBIN 0.4 mg/dL (0.2-1.0); TOTAL PROTEIN 6.4 g/dL (6.4-8.2)
--- NOTE | 2022-02-14 14:33 | RAD ---
XR CHEST 1V History: Reason: chest pain / Spl. Instructions: / History: Comparison: November 12, 2020 Findings: No consolidation or pleural effusion. Normal heart size. No pneumothorax. Impression: 1. No acute cardiopulmonary process. Electronically signed by: Jatinder Pickering DO (02/14/2022 2:31 PM) [facility]
--- NOTE | 2022-02-14 14:49 | RAD ---
CT CERVICAL SPINE WO History: Recurrent right sided neck pain, right arm numbness Comparison: None. Technique: Noncontrast CT of the cervical spine. Findings: There are 7 nonrib-bearing cervical vertebral segments. There is no evidence for acute fracture in the cervical spine. No destructive osseous lesions are see n. Mild straightening of the normal cervical lordosis. No spondylolisthesis The intervertebral disc heights are relatively maintained. There is mild left uncovertebral hypertrop hy at C3-C4. Mild central disc protrusion at C3-C4 and C4-C5. Moderate disc protrusion at C6-C7 which narrow the spinal canal to approximately 7 mm. Left maxillary first molar periapical lucency with loss of the outer cortex. Peripherally calcified left thyroid nodule measuring approximately 1.4 cm diameter. Impression: 1. Recurrent right-sided neck pain, right arm numbness. Mild degenerative disc disease in the cervic al spine. If there is concern for radiculopathy, recommend MRI for further evaluation. 2. Peripherally calcified left thyroid nodule measuring approximately 1.4 cm diameter. Recommend thy roid ultrasound for further evaluation. 3. Left maxillary first molar periapical lucency with loss of the alveolar cortex. Recommend dental consultation. ------- Exposure: One or more of the following individualized dose reduction techniques were utilized for thi s examination: 1. Automated exposure control 2. Adjustment of the mA and/or kV according to patient size 3. Use of iterative reconstruction technique. Electronically signed by: Nam Weaver MD (02/14/2022 2:47 PM) [id number]
[2022-02-14] MEDS ORDERED: METH4TAB2 PO (15:07)
[2022-02-14] MEDS ORDERED: HYDR-2759 PO (15:07)
[2022-02-14 15:32] VITALS: BP 124/65
== END 2022-02-14 15:33 | disposition home or self-care (01) ==
LOC: ER 12:49
DX: M54.12 Radiculopathy, cervical region (principal); K05.5 Other periodontal diseases; R07.89 Other chest pain; I48.91 Unspecified atrial fibrillation; J45.909 Unspecified asthma, uncomplicated; I25.10 Atherosclerotic heart disease of native coronary artery without angina pectoris; I25.2 Old myocardial infarction; Z88.1 Allergy status to other antibiotic agents
CPT/HCPCS: 36415; 71045; 72125; 80053; 83735; 84484; 85025; 93005; 96361; 96374; 96375; 96376; 99285; J1885; J2270; J7030